=== PATIENT | male | born 1975 | race Caucasian/White ===

== ENCOUNTER 2017-08-15 09:37 | Emergency (ER) | payer SELFPAY ==
[~2017-08-15] VITALS: Ht 175.3 cm; Wt 101.2 kg
[2017-08-15 09:43] VITALS: BP 140/91; Ht 175.3 cm; Wt 101.2 kg
== END 2017-08-15 10:57 | disposition home or self-care (01) ==
LOC: ED 09:37
DX: G89.29 Other chronic pain (principal); M54.5 Low back pain; M51.36 Other intervertebral disc degeneration, lumbar region